=== PATIENT | female | born 1950 | race Caucasian/White ===

== ENCOUNTER 2017-11-13 06:23 | Inpatient (IN) | payer OTHER, MEDICARE ==
[2017-11-02 09:37] LABS: ABSOLUTE BASOPHILS 0.1 thou/uL (0.0-0.2); ABSOLUTE EOSINOPHILS 0.1 thou/uL (0.0-0.7); ABSOLUTE LYMPHOCYTES 4.2 thou/uL (0.8-5.3); ABSOLUTE MONOCYTES 0.6 thou/uL (0.0-1.2); ABSOLUTE NEUTROPHILS 6.4 thou/uL (1.6-8.1); BASOPHILS 0.5 %; EOSINOPHILS 1.1 %; HEMATOCRIT 45.2 % (37.0-47.0); HEMOGLOBIN 15.5 gm/dL (12.0-15.0); MCHC 34.2 g/dL (28.0-37.0); MCV 96.4 fL (80.0-100.0); MPV 10.1 fl. (7.2-11.1); NUCLEATED RBCS 0 /100WBC; PLATELET COUNT* 246 thou/uL (150-400); POLYS 56.4 %; RBC 4.69 mil/uL (4.20-5.00); RDW-CV 13.8 % (10.5-14.5); WBC 11.3 thou/uL (4.0-11.0)
[2017-11-02 09:46] LABS: APTT 29.3 Seconds (25.0-31.3)
[2017-11-02 10:12] LABS: CALCIUM 10.1 mg/dL (8.5-10.1); CREATININE 1.1 mg/dL (0.6-1.3); POTASSIUM 3.8 mmol/L (3.5-5.1); TOTAL BILIRUBIN 0.8 mg/dL (<0.1-1.0); TOTAL PROTEIN 8.3 g/dL (6.4-8.2)
[2017-11-02 10:45] LABS: ESR (SEDRATE) 25 mm/hr (0-30)
--- NOTE | 2017-11-02 17:31 | EKG ---
[place] [address] ELECTROCARDIOGRAM REPORT Name: JOSE MEDRANO Room: [facility]#: [id number] Admission: Attend Phys: Celia Rich Discharge: Date of : 52 Report #: [id number] THIS REPORT FOR: //name// [facility] Test Date: 2017-11-02 Test Time: 09:04:58 Pat Name: JOSE MEDRANO Department: Room: Gender: F Best Worker: : 1950 Requested By: Wali Castillo Order Number: [id number] Reading MD: Min Young Measurements Intervals [place] Rate: 95 P: 56 PA: 197 QRS: 66 QRSD: 84 T: 32 QT: 394 QTc: 496 Interpretive Statements Sinus rhythm Consider right atrial enlargement Consider left ventricular hypertrophy Borderline prolonged QT interval Compared to ECG 03/08/2015 16:58:02 Sinus tachycardia no longer present ST (T wave) deviation no longer present Electronically Signed On 11-02-2017 17:30:43 DAUB COLOR MIXER by Min Young [email or web address] <ELECTRONICALLY SIGNED> By: Min Young MD, [facility] 11/02/17 1730 3 3 Min Young MD, [facility] /EPI
[2017-11-03 02:07] LABS: GLYCOHEMOGLOBIN (HGB A1C) 5.2 % (4.8-5.6)
[~2017-11-13] VITALS: Ht 162.6 cm; Wt 90.7 kg
[~2017-11-13 06:23] MED LIST: ALDACTONE25 MG PO; AMOX TR-K CLV1 EAC4 PO; ATORVASTATIN CA40 MG PO; CLARITIN10 M2 PO; COLACE100 MG PO; FLONASE 0.05%50 MCG NASAL; IBUPROFEN 800800 M1 PO; MOBIC15 MG PO; NORVASC5 MG PO
[2017-11-13 06:45] VITALS: BP 163/85
[2017-11-13 12:22] VITALS: BP 190/69
[2017-11-13 16:00] VITALS: BP 148/79
--- NOTE | 2017-11-13 18:54 | NUR ---
PATIENT IS MUCH MORE AWAKE THIS EVENING SINCE SURGERY. HAS SOME PAIN, MEICATIONS GIVEN, NOW NAUSEATED, ZOFRAN GIVEN. PATIENT HAD RIGHT HIP SURGERY. ON CAPNO. BED IN LOWEST POSITION, CALL LIGHT IN REACH. INCONTINENT OF BLADDER. CHUCKS CHANGED.
[2017-11-14 00:19] VITALS: BP 161/85
[2017-11-14 03:25] LABS: HEMOGLOBIN 12.6 gm/dL (12.0-15.0)
[2017-11-14 04:02] VITALS: BP 141/69
--- NOTE | 2017-11-14 06:06 | NUR ---
PATIENT IS ALERT AND ORIENTED X 4. VSS ON 2L 02 VIA NASAL CANNULA AND CAPNO IN PLACE. PAIN WELL CONTROLLED THROUGHOUT THE NIGHT AND PATIENT HAS SLEPT WELL. COSMO DRESSING TO RIGHT HIP IS C/D/I, SCD'S AND TEDS IN PLACE. IV IN RIGHT HAND-SL. IV ABT GIVEN WITHOUT ANY ADVERSE SIDE EFFECTS NOTED. PATIENT INSTRUCTED TO USE CALL LIGHT WHEN NEEDING ASSISTANCE. HOURLY ROUNDS MADE. WILL CONTINUE WITH PLAN OF CARE AND NURSING TO MONITOR.
[2017-11-14 07:50] VITALS: BP 177/76
--- NOTE | 2017-11-14 15:00 | NUR ---
MET WITH PT. SHE PLANS TO DISCHARGE HOME TOMORROW. HER DAUGHTER WILL BE STAYING WITH HER AT DISCHARGE FOR SEVERAL DAYS. SHE HAS A WALKER AT HOME. SHE SAID SAID SHE WILL NOT HAVE TO HAVE ANY P.T. AT DISCHARGE. CM WILL CALL IN BLOOD THINNER FOR PT. IN AM TO CHECK COPAY. [facility] [place] [phone]. CM WILL SEE PT.IN AM.
[2017-11-14 16:09] VITALS: BP 152/79
--- NOTE | 2017-11-14 16:38 | NUR ---
PATIENT A&OX4, 2L O2 VIA NC THIS A.M. O2 D/C ON ROOM AIR, 96%. IV RIGHT HAND SALINE LOCK. UP WITH ASSISTX1 WITH GAITBELT AND WALKER. C/O MODERATE TO SEVERE PAIN, MINIMAL TO PARTIAL RELIEF WITH MEDICATION. PAIN INCREASE WITH ACTIVITY. NO OTHER CONCERNS AT THIS TIME. APPROPRAITE AND COOPORATIVE WITH CARE.
--- NOTE | 2017-11-14 16:41 | S ---
[address] [address] SURGICAL PATH RPT PROCEDURE Name: JOSE MEDRANO S Room: [address] IN .R.#: [id number] Admission: 11/13/17 Date of : 52 Discharge: Report #: [id number] Path Case #: [id number] PATHOLOGY REPORT COLLECTION DATE: 11/13/2017 RECEIVED DATE: 11/13/2017 SUBMITTING PHYS: Dr. Wali Castillo OTHER PHYS: Dr. Sushil Ortega SPECIMEN(S) RECEIVED: A.Right hip bone and tissue * * * * * * * * * * * * FINAL DIAGNOSIS: Right hip bone and tissue: - Benign femoral head tissues with severe cystic degenerative changes. - Benign fibrous connective tissue and synovium.. (SRIDHAR:pit; 11/14/2017) PATHOLOGIST: Rene Warren M.D. REPORT ELECTRONICALLY SIGNED BY: Rene Warren M.D. DATE/TIME: 11/14/2017 16:40 * * * * * * * * * * * * GROSS PATHOLOGY: Received in formalin labeled "Jose Medrano right hip bone and tissue" and consists of a femoral head received in 2 separate portions. The first is semicircular measuring 4.7 x 4.7 x 3.2 cm. The second fragment consists of the neck and base of head with an overall size of 4.7 x 4.5 x 2.0 cm. The semicircular fragment demonstrates articular cartilage which is slightly nodular, roughened, and shows an area of eburnation measuring 1.5 cm. Sectioning each fragment reveals no gross evidence of osteonecrosis. Also within the container is a 5.0 x 4.0 x 2.5 cm aggregate of bone reamings and fibrous tissue. [place] sections are submitted as A1 following formalin fixation and decalcification. (JAILENE; 11/13/2017) CLINICAL HISTORY: Right hip degenerative joint disease INITIAL CPT CODE(S): A; 08596, 00333 Professional services performed by [facility] [place] [address] SURGICAL PATH RPT PROCEDURE Name: JOSE MEDRANO Room: [address] IN ..#: [id number] Admission: 11/13/17 Date of : 52 Discharge: Report #: [id number] Path Case #: [id number] [place] [address]. Technical services performed by [facility] at [address] [place] [address], [address], [place] [address]. [employer] [address] [address] PHONE: [phone] DIRECTOR: Boris Crandall M.D. * * * END OF REPORT * * *
[2017-11-15] VITALS: BP 160/79
[2017-11-15 04:32] LABS: HEMOGLOBIN 12.4 gm/dL (12.0-15.0)
[2017-11-15 04:56] VITALS: BP 161/84
--- NOTE | 2017-11-15 07:45 | NUR ---
PATIENT HAS BEEN RESTLESS THROUGHOUT THE NIGHT. UP TO CHAIR THIS AM. VSS, ALTHOUGH BP ELEVATED, AND PULSE IS TACHY. PATIENT IS UP WITH ASSIST X 1 WITH GAITBELT AND WALKER TO [facility]. IV IN RIGHT HAND-SL. COSMO DRESSING TO RIGHT HIP IS C/D/I. NO C/O PAIN DURING SHIFT. PATIENT INSTRUCTED TO USE CALL LIGHT WHEN NEEDING ASSISTANCE. HOURLY ROUNDS MADE. WILL CONTINUE WITH PLAN OF CARE .
[2017-11-15 08:00] VITALS: BP 178/85
[2017-11-15] MEDS ORDERED: ELIQUIS2.5 MG PO (12:48)
[2017-11-15] MEDS ORDERED: ROXICODONE5 M2 PO (13:05)
[2017-11-15 13:07] VITALS: BP 178/85
[2017-11-15] MEDS ORDERED: ASPIRIN325 PO (13:15)
--- NOTE | 2017-11-15 13:30 | NUR ---
MAEGAN CALLED [facility] INTO [facility] THIS AM. CALLED BACK FOR COPAY. THEY HAD NOT RUN IT YET. PT.DISCHARGED PRIOR TO BEING ABLE TO CHECK ON COPAY FOR HER. RN SAID PT.HAD NO OTHER DISCHARGE NEEDS. NO P.T. ORDERS,ETC.
--- NOTE | 2017-11-15 13:53 | NUR ---
PT DC'D HOME WITH ALL BELONGINGS. PT GIVEN PRESCRIPTIONS. PT ACKNOWLEDGED DISCHARGE AND MEDICATIONS. PAIN MED GIVEN BEFORE DISMISSAL ON PATIENT REQUEST.
--- NOTE | 2017-11-20 09:23 | OP ---
[address] [address] OPERATIVE REPORT Name: MARCELAJOSE S Room: [address]#: [id number] Admission: 11/13/17 Attend Phys: Celia Rich Discharge: 11/15/17 Date of : 52 Report #: [id number] THIS REPORT FOR: //name// CC: Brendan Soni DICTATED BY: Aleksandar Cloud DO DATE OF SERVICE: 11/13/2017 PREOPERATIVE DIAGNOSIS: Advanced degenerative joint disease, right hip. POSTOPERATIVE DIAGNOSIS: Advanced degenerative joint disease, right hip. SURGEON: Wali Castillo DO FILLER SHREDDER: Aleksandar Cloud DO SURGERY PERFORMED: Right total hip arthroplasty. ANESTHESIA: General with local capsular block. ESTIMATED BLOOD LOSS: 250. SPECIMENS: None. COMPLICATIONS: None. ANTIBIOTICS: 2 grams Ancef. IMPLANTS: Biomet G7 acetabular dual mobility with a size 52 G7 finned acetabular shell, a G7 dual mobility acetabular liner, a size 42 dual mobility bearing with a size 28 mm ceramic head, a +3 mm neck offset, a size 11 high offset femoral stem and two 6.5 mm acetabular screws, 25 mm and 30 mm in length. INDICATIONS FOR PROCEDURE: The patient is a 67-year-old female who has been seen multiple times in our clinic regarding her right hip pain. Unfortunately, she is no longer responding to conservative treatment including anti-inflammatories, activity modification, and weight loss. She does have a history of left total hip arthroplasty. She also has a previous lumbar spinal fusion. Her pain is significantly affecting her quality of life and ability to perform ADLs. She presents today for the above-mentioned procedure. All risks, benefits, complications and alternatives of surgery have been reviewed and discussed with her and the patient wishing to proceed. It was elected to use a dual mobility system in this patient due to her prior lumbar [place] [address] OPERATIVE REPORT Name: JOSE MEDRANO Room: [address]#: [id number] Admission: 11/13/17 Attend Phys: Celia Rich Discharge: 11/15/17 Date of : 52 Report #: [id number] increased risk for dislocation. DESCRIPTION OF PROCEDURE: The patient was taken to the OR suite, placed supine on the OR table. She was given the benefit of general anesthetic. Leg holders were secured into placed on the traction table and all bony prominences were well padded. She was prepped and draped in the usual sterile fashion. Prior to procedure, a timeout was taken confirming correct site, patient and procedure. The procedure began with an anterior incision over the right hip approximately 2 cm distal and lateral to the ASIS. Dissection was carried down through the skin and soft tissue, subcutaneous tissue to the level of the tensor fascia. This was incised longitudinally both proximally and distally, the interval was developed between the IT band and sartorius and dissection was carried down through the deep fascia. Circumflex vessels were encountered. These were cauterized with Aquamantys and the joint capsule was then identified. Appropriate retractors were placed. A capsulectomy was performed and the femoral head and neck was exposed. A napkin ring was performed of the femoral neck, type cut and this was removed as well as the femoral head. All excess labral tissue and osteophytes were removed out of the acetabulum with acetabular reaming, was reamed up to a size 51, appropriately medialized. This was checked under C-arm. Final acetabular shell was placed and 2 screws were placed as well. The cup was well seated when placed. C-arm was used to check placement as well. We then directed our attention to the femur. The leg was brought into maximum external rotation. Appropriate retractors were placed and the leg was dropped down to extension and abduction. Posterior superior capsule was released. A box osteotome and rat tail rasp were used to access femoral canal. Broaching was performed to a size 11. This was used for a trial with lateral offset to confirm the size of our stem and our leg length. We then irrigated the canal thoroughly and placed our final stem as well as final head and dual mobility liner. The hip was reduced. Final images were taken showing good alignment and appropriate leg length. A posterior capsular block was performed at this time. Please note that vancomycin powder was put in the wound as well. The wound was thoroughly irrigated. A tensor lateral fascia was reapproximated with a running 3-0 Stratafix, Dermabond glue and a COSMO incisional wound VAC dressing was placed. The patient tolerated the procedure well and was transferred to the PACU in good stable condition. All sponge, needle counts were correct x 2. <ELECTRONICALLY SIGNED> By: Wali Castillo DO 11/20/17 0923 1038 [id number] Castillo DO /nt
== END 2017-11-15 13:50 | disposition home or self-care (01) | DRG 470 ==
LOC: M.ORTHSURG 06:23 → M.TBA 06:23 → M.PRE 06:30 → M.ORTHSURG 12:19 → M.PRE 12:43 → M.ORTHSURG 11-15 13:50
PROVIDERS: Orthopaedic Surgery; ADMIT Internal Medicine
PROC: 0SR90JZ Replacement of Right Hip Joint with Synthetic Substitute, Open Approach (ICD-10-PCS; principal; 2017-11-13)
DX: M16.11 Unilateral primary osteoarthritis, right hip (principal); I10 Essential (primary) hypertension; Z96.642 Presence of left artificial hip joint; F17.210 Nicotine dependence, cigarettes, uncomplicated; J30.2 Other seasonal allergic rhinitis; Z88.8 Allergy status to other drugs, medicaments and biological substances; Z90.13 Acquired absence of bilateral breasts and nipples; Z85.3 Personal history of malignant neoplasm of breast; Z90.49 Acquired absence of other specified parts of digestive tract